=== PATIENT | female | born 1985 | race Two or more races ===

== ENCOUNTER → 2019-08-24 | Day surgery (SDC) | payer OTHER | END | disposition home or self-care (01) | LOC: ADM 08-20 10:30 → CIR.AMB 08-20 10:30 | PROVIDERS: Plastic Surgery | PROC: 0HWU0YZ Revision of Other Device in Left Breast, Open Approach (ICD-10-PCS; 2019-08-24) | PROC: 0HWT0YZ Revision of Other Device in Right Breast, Open Approach (ICD-10-PCS; 2019-08-24) | PROC: 0J083ZZ Alteration of Abdomen Subcutaneous Tissue and Fascia, Percutaneous Approach (ICD-10-PCS; principal; 2019-08-24 13:45) | DX: E65 Localized adiposity (principal); L91.0 Hypertrophic scar ==